=== PATIENT | male | born 1995 | race African-American/Black ===

== ENCOUNTER 2019-01-10 13:43 | Emergency (ER) | payer MEDICAID ==
[~2019-01-10] VITALS: Ht 185.4 cm; Wt 81.8 kg
[~2019-01-10 13:43] MED LIST: LORA0.5T2 PO; OLAN2.5T3 PO; TRAZ-219 PO
[2019-01-10 15:30] VITALS: BP 138/79
== END 2019-01-10 15:40 | disposition home or self-care (01) ==
LOC: EMS 13:43
DX: S51.811A Laceration without foreign body of right forearm, initial encounter (principal); R03.0 Elevated blood-pressure reading, without diagnosis of hypertension; F31.9 Bipolar disorder, unspecified; F20.9 Schizophrenia, unspecified; F41.9 Anxiety disorder, unspecified; F12.90 Cannabis use, unspecified, uncomplicated; F17.210 Nicotine dependence, cigarettes, uncomplicated; F14.90 Cocaine use, unspecified, uncomplicated; Z48.02 Encounter for removal of sutures; X58.XXXA Exposure to other specified factors, initial encounter; Y93.89 Activity, other specified; Y92.89 Other specified places as the place of occurrence of the external cause; Y99.8 Other external cause status

== ENCOUNTER 2022-12-23 12:29 | Emergency (ER) | payer BC, MEDICAID ==
[~2022-12-23] VITALS: Ht 182.9 cm; Wt 82.0 kg
[~2022-12-23 12:29] MED LIST changes: +LORA-999 PO; -LORA0.5T2 PO; -TRAZ-219 PO; +TRAZ-252 PO
[2022-12-23] MEDS ORDERED: KETOROLAC TROMETHAMINE 30 MG/ML VIAL IM ONE (14:15)
[2022-12-23 16:46] VITALS: BP 130/82
== END 2022-12-23 17:40 | disposition home or self-care (01) ==
LOC: EMS 12:40
DX: M25.511 Pain in right shoulder (principal); M25.561 Pain in right knee; M79.651 Pain in right thigh; F41.9 Anxiety disorder, unspecified; F31.9 Bipolar disorder, unspecified; F20.9 Schizophrenia, unspecified; F12.90 Cannabis use, unspecified, uncomplicated
CPT/HCPCS: 99283; 73030; 73552; 73562; 96372; J1885